=== PATIENT | female | born 1960 | race African-American/Black ===

== ENCOUNTER → 2016-08-24 | Emergency (ER) | payer SELFPAY ==
[~2016-08-24] VITALS: Ht 167.6 cm; Wt 81.6 kg
[2016-08-24 22:16] VITALS: BP 102/67
== END | disposition left against medical advice (07) ==
LOC: ER 22:11
DX: T24.0 Burn of unspecified degree of lower limb, except ankle and foot (principal); T24.019A Burn of unspecified degree of unspecified thigh, initial encounter; Z53.21 Procedure and treatment not carried out due to patient leaving prior to being seen by health care provider; X11.8XXA Contact with other hot tap-water, initial encounter; Y93.89 Activity, other specified; Y99.8 Other external cause status; Y92.89 Other specified places as the place of occurrence of the external cause